=== PATIENT | female | born 1960 | race Caucasian/White ===

== ENCOUNTER → 2017-12-19 | Emergency (ER) | payer OTHER ==
[~2017-12-19] VITALS: Ht 157.5 cm; Wt 53.5 kg
[~2017-12-19] MED LIST: MUPIROCIN22 GM TOP
== END | disposition home or self-care (01) ==
LOC: ER 14:40
DX: S90.512A Abrasion, left ankle, initial encounter (principal); W22.8XXA Striking against or struck by other objects, initial encounter; Y93.89 Activity, other specified; Y92.89 Other specified places as the place of occurrence of the external cause; Y99.8 Other external cause status

== ENCOUNTER 2018-06-18 02:10 | Emergency (ER) | payer OTHER ==
[~2018-06-18] VITALS: Ht 170.2 cm; Wt 50.3 kg
[2018-06-18] MEDS ORDERED: CIPRO500 MG PO (09:13)
[2018-06-18] MEDS ORDERED: KETO10TA2 PO (09:13)
== END 2018-06-18 09:24 | disposition home or self-care (01) ==
LOC: ER 02:10
DX: R10.31 Right lower quadrant pain (principal); R50.9 Fever, unspecified

== ENCOUNTER 2020-12-02 16:44 | Emergency (ER) | payer OTHER ==
[~2020-12-02] VITALS: Ht 160 cm; Wt 63.5 kg
[~2020-12-02 16:44] MED LIST changes: +CIPRO500 MG PO; +KETO10TA2 PO
== END 2020-12-02 20:43 | disposition home or self-care (01) ==
LOC: ER 16:44
DX: R11.11 Vomiting without nausea (principal); R00.2 Palpitations

== ENCOUNTER 2023-08-31 12:17 | Emergency (ER) | payer OTHER ==
[~2023-08-31] VITALS: Ht 157.5 cm; Wt 68.0 kg
== END 2023-08-31 18:28 | disposition home or self-care (01) ==
LOC: ER 12:18
DX: S22.43XA Multiple fractures of ribs, bilateral, initial encounter for closed fracture (principal); X58.XXXA Exposure to other specified factors, initial encounter; Y93.34 Activity, bungee jumping; Y92.9 Unspecified place or not applicable; Y99.9 Unspecified external cause status; R07.81 Pleurodynia